=== PATIENT | female | born 1965 | race African-American/Black ===

== ENCOUNTER 2021-06-02 00:06 | Inpatient (IN) ==
[2021-06-02] MEDS ORDERED: SODIUM CHLORIDE 0.9% 1,000 ML IV STA (00:28)
[2021-06-02 01:03] LABS: Basophils % 0.3 % (0.0-0.8); Eosinophils # 0.2 10*3/uL (0.0-0.87); Eosinophils % 2.9 % (0.00-10.9); Hematocrit 32.5 VOL% (35.7-47.0); Hemoglobin 10.1 GM/DL (12.0-16.0); Immature Granulocytes % 0.4 %; Immature Granulocytes Absolute 0.03 #; Lymphocytes # 2.6 10*3/uL (1.4-4.0); Lymphocytes % 35.2 % (21.3-54.2); Mean Corpuscular HGB Conc 31.1 GM/DL (32-36); Monocytes # 0.5 10*3/uL (0.11-0.8); Monocytes % 7.4 % (1.7-12.7); Neutrophils % 53.8 % (38.7-73.9); Platelet Count 368 T/CUMM (130-400); Red Blood Count 3.65 MC/CUMM (3.8-5.5); Red Cell Distribution Width 15.8 % (9.3-17.3); White Blood Count 7.3 T/CUMM (4-12)
[2021-06-02] MEDS ORDERED: ONDANSETRON 4 MG/2 ML VIAL IV PRN ×2 (01:06→09:21)
[2021-06-02] MEDS ORDERED: MORPHINE 2 MG/1 ML SYRINGE IV STA ×2 (01:06→02:54)
[2021-06-02 01:17] LABS: PT Patient Result 11.2 SECS (10.5-12.0)
[2021-06-02 01:30] LABS: Albumin 2.8 G/DL (3.4-5.0); Bilirubin,Total 0.4 MG/DL (0.20-1.00); Osmolality,Calculated 275.5 MOS/KG (273-304); Potassium 3.2 MMOL/L (3.5-5.1); Total Protein 7.2 G/DL (6.4-8.2)
[2021-06-02] MEDS ORDERED: GLUCAGON 1 MG VIAL IM PRN (03:23)
[2021-06-02] MEDS ORDERED: MORPHINE 2 MG/1 ML SYRINGE IV PRN (03:23)
[2021-06-02] MEDS ORDERED: DEXTROSE 10% 250 ML BAG IV PRN (03:31)
[2021-06-02] MEDS ORDERED: HYDROmorphone 1 MG/1 ML SYRINGE IV ONE (04:04)
[2021-06-02] MEDS: SODIUM CHLORIDE 0.9% 1,000 ML IV SCH ×2 (04:15→20:56)
[2021-06-02] MEDS: POTASSIUM CHLORIDE RIDER 10 MEQ/100 ML PREMIX IV SCH ×2 (04:16→05:37)
[2021-06-02] MEDS ORDERED: FAMOTIDINE 20 MG TABLET PO ONE (06:11)
[2021-06-02] MEDS ORDERED: LACTATED RINGERS 1,000 ML IV SCH (06:30)
[2021-06-02] MEDS ORDERED: propofoL 200 MG/20 ML VIAL IV ONE (07:02)
[2021-06-02] MEDS ORDERED: LIDOCAINE 2% 5 ML VIAL ONE (07:02)
[2021-06-02] MEDS ORDERED: ROCURONIUM 50 MG/5 ML VIAL IV ONE (07:02)
[2021-06-02] MEDS ORDERED: fentaNYL 100 MCG/2 ML VIAL ONE (07:04)
[2021-06-02] MEDS ORDERED: DEXMEDETOMIDINE 200 MCG/2 ML VIAL ONE (07:05)
[2021-06-02] MEDS ORDERED: MIDAZOLAM 2 MG/2 ML VIAL ONE (07:05)
[2021-06-02] MEDS ORDERED: LIDOCAINE 1% 5 ML VIAL ONE (07:09)
[2021-06-02] MEDS ORDERED: DEXAMETHASONE 4 MG/1 ML VIAL ONE (07:09)
[2021-06-02] MEDS ORDERED: ROPIVACAINE 0.5% 30 ML VIAL ONE (07:09)
[2021-06-02 07:20] LABS: Basophils % 0.2 % (0.0-0.8); Eosinophils # 0.2 10*3/uL (0.0-0.87); Eosinophils % 4.2 % (0.00-10.9); Hematocrit 30.4 VOL% (35.7-47.0); Hemoglobin 9.5 GM/DL (12.0-16.0); Immature Granulocytes % 0.3 %; Immature Granulocytes Absolute 0.02 #; Lymphocytes # 2.4 10*3/uL (1.4-4.0); Lymphocytes % 42.4 % (21.3-54.2); Mean Corpuscular HGB Conc 31.3 GM/DL (32-36); Mean Corpuscular Volume 88.9 FL (87-102); Mean Platelet Volume 10.6 FL (9.6-12.0); Monocytes # 0.6 10*3/uL (0.11-0.8); Monocytes % 9.8 % (1.7-12.7); Neutrophils % 43.1 % (38.7-73.9); Platelet Count 328 T/CUMM (130-400); Red Blood Count 3.42 MC/CUMM (3.8-5.5); Red Cell Distribution Width 15.9 % (9.3-17.3); White Blood Count 5.7 T/CUMM (4-12)
[2021-06-02] MEDS ORDERED: CLINDAMYCIN INJ 900 MG/50 ML PREMIX IV ONE (07:29)
[2021-06-02 07:38] LABS: Albumin 2.7 G/DL (3.4-5.0); Bilirubin,Total 0.4 MG/DL (0.20-1.00); Calcium 8.9 MG/DL (8.5-10.1); Osmolality,Calculated 270.8 MOS/KG (273-304); Potassium 3.6 MMOL/L (3.5-5.1); Total Protein 6.7 G/DL (6.4-8.2)
[2021-06-02 08:08] LABS: Phosphorous 3.6 MG/DL (2.5-4.9)
[2021-06-02] MEDS: INSULIN REGULAR 100 UNIT/ML SUBCUT SCH ×4 (08:37→20:57)
[2021-06-02] MEDS ORDERED: GLYCOPYRROLATE 0.4 MG/2 ML VIAL ONE ×2 (08:38→08:49)
[2021-06-02] MEDS ORDERED: DESFLURANE 1 UNIT/15 MINUTE INH ONE (08:38)
[2021-06-02] MEDS ORDERED: NEOSTIGMINE 10 MG/10 ML VIAL ONE (08:44)
[2021-06-02] MEDS ORDERED: PHENYLEPHRINE 1 MG/10 ML SYRINGE IV ONE (08:49)
[2021-06-02] MEDS ORDERED: SUGAMMADEX 200 MG/2 ML VIAL IV ONE (09:02)
[2021-06-02] MEDS ORDERED: MAGNESIUM HYDROXIDE SUSP 30 ML UDCUP PO PRN (09:15)
[2021-06-02] MEDS ORDERED: PROMETHAZINE 25 MG/1 ML VIAL IM PRN (09:15)
[2021-06-02] MEDS ORDERED: HydrOXYzine PAMOATE 25 MG CAPSULE PO PRN (09:19)
[2021-06-02] MEDS ORDERED: PROMETHAZINE 25 MG TABLET PO PRN (09:19)
[2021-06-02] MEDS ORDERED: PROMETHAZINE INJ 25 MG in SODIUM CHLORIDE 0.9% 50 ML IV PRN (09:21)
[2021-06-02] MEDS ORDERED: MEPERIDINE 25 MG/1 ML VIAL IV PRN (09:21)
[2021-06-02] MEDS ORDERED: HYDROmorphone 1 MG/1 ML SYRINGE IV PRN (09:21)
[2021-06-02] MEDS ORDERED: diphenhydrAMINE 50 MG/1 ML VIAL IV PRN (09:21)
[2021-06-02] MEDS: oxyCODONE/ACETAMINOPHEN 5-325 MG TABLET PO PRN ×3 (11:03→22:02)
[2021-06-02 11:31] LABS: Hyaline Casts,Urine 3 /LPF (0-3); RBC,Urine 1 /HPF (0-4); Squamous Epithelial Cell,Urine Occasional /HPF (0-10)
[2021-06-02 11:32] LABS: Bilirubin,Urine Negative (Negative); Blood, Urine Negative (Negative); Glucose,Urine (UA) Negative (Negative); Ketones,Urine Negative (Negative); Nitrite,Urine Negative (Negative); Protein,Urine Negative (Negative); Urine Appearance Clear (Clear); Urine Color Yellow (Yellow); Urine Specific Gravity 1.015 (1.001-1.035); Urine pH 5.5 (4.5-8.0)
[2021-06-02] MEDS ORDERED: ALBUTEROL 2.5 MG/3 ML NEB RESP TX PRN (12:00)
[2021-06-02 13:08] LABS: Barbiturates Screen,Urine Negative (Negative); Benzodiazepines Screen,Urine Positive (Negative); Cannabinoid Screen,Urine Negative (Negative); Opiate Screen,Urine Positive (Negative); Phencyclidine Screen,Urine Negative (Negative)
[2021-06-02] MEDS: CLINDAMYCIN INJ 900 MG/50 ML PREMIX IV SCH ×2 (13:30→21:00)
[2021-06-02] MEDS: DICLOFENAC 1% GEL 100 GM TUBE TOP SCH ×3 (13:30→21:02)
[2021-06-02] MEDS ORDERED: CYCLOBENZAPRINE 5 MG PO SCH (15:00)
[2021-06-02] MEDS: tiZANidine 4 MG TABLET PO SCH (20:57)
[2021-06-02] MEDS: CETIRIZINE 10 MG TABLET PO SCH (20:58)
[2021-06-02] MEDS: DULoxetine 30 MG CAPSULE PO SCH (20:58)
[2021-06-02] MEDS ORDERED: ZALEPLON 5 MG CAPSULE PO SCH (21:00)
[2021-06-02] MEDS: diphenhydrAMINE CAP 25 MG CAPSULE PO PRN (21:40)
[2021-06-03] MEDS: oxyCODONE/ACETAMINOPHEN 5-325 MG TABLET PO PRN ×2 (04:34→20:23)
[2021-06-03] MEDS: CLINDAMYCIN INJ 900 MG/50 ML PREMIX IV SCH (05:21)
[2021-06-03] MEDS: INSULIN REGULAR 100 UNIT/ML SUBCUT SCH ×4 (08:40→22:06)
[2021-06-03] MEDS ORDERED: LOSARTAN 50 MG TABLET PO SCH (09:00)
[2021-06-03] MEDS ORDERED: PANTOPRAZOLE 40 MG TABLET PO SCH (09:00)
[2021-06-03] MEDS: HYDROmorphone 1 MG/1 ML SYRINGE IV PRN ×3 (09:04→23:29)
[2021-06-03] MEDS: DULoxetine 30 MG CAPSULE PO SCH (09:07)
[2021-06-03] MEDS: ROSUVASTATIN 20 MG TABLET PO SCH (09:07)
[2021-06-03] MEDS: PANTOPRAZOLE 40 MG TABLET PO SCH (09:07)
[2021-06-03] MEDS: tiZANidine 4 MG TABLET PO SCH ×2 (09:07→20:23)
[2021-06-03] MEDS: FOLIC ACID 1 MG TABLET PO SCH (09:08)
[2021-06-03] MEDS: DICLOFENAC 1% GEL 100 GM TUBE TOP SCH ×4 (09:09→20:24)
[2021-06-03] MEDS: MOMETASONE 220 MCG/PUFF INHALER 14 DOSE INH SCH (10:00)
[2021-06-03] MEDS: MIRABEGRON 25 MG PO SCH (10:00)
[2021-06-03] MEDS: FLUTICASONE 50 MCG NASAL SPRAY 16 GM BOTTLE BOTH NARES SCH (10:40)
[2021-06-03] MEDS: SODIUM CHLORIDE 0.9% 1,000 ML IV SCH ×2 (11:12→18:27)
[2021-06-03] MEDS: diphenhydrAMINE CAP 25 MG CAPSULE PO PRN (20:23)
[2021-06-03] MEDS: CETIRIZINE 10 MG TABLET PO SCH (20:24)
[2021-06-03] MEDS ORDERED: DULoxetine 20 MG CAPSULE PO SCH (21:00)
[2021-06-04] MEDS: oxyCODONE/ACETAMINOPHEN 5-325 MG TABLET PO PRN ×6 (01:17→23:47)
[2021-06-04] MEDS: HYDROmorphone 1 MG/1 ML SYRINGE IV PRN ×5 (03:25→21:14)
[2021-06-04 05:41] LABS: Basophils % 0.1 % (0.0-0.8); Eosinophils # 0.1 10*3/uL (0.0-0.87); Hematocrit 27.9 VOL% (35.7-47.0); Hemoglobin 8.7 GM/DL (12.0-16.0); Immature Granulocytes % 0.4 %; Immature Granulocytes Absolute 0.03 #; Lymphocytes # 2.9 10*3/uL (1.4-4.0); Lymphocytes % 43.3 % (21.3-54.2); Mean Corpuscular HGB Conc 31.2 GM/DL (32-36); Mean Corpuscular Volume 89.4 FL (87-102); Mean Platelet Volume 11.6 FL (9.6-12.0); Monocytes # 0.5 10*3/uL (0.11-0.8); Neutrophils % 47.2 % (38.7-73.9); Platelet Count 299 T/CUMM (130-400); Red Blood Count 3.12 MC/CUMM (3.8-5.5); Red Cell Distribution Width 15.8 % (9.3-17.3); White Blood Count 6.8 T/CUMM (4-12)
[2021-06-04 06:16] LABS: Calcium 8.5 MG/DL (8.5-10.1); Potassium 3.1 MMOL/L (3.5-5.1)
[2021-06-04] MEDS: INSULIN REGULAR 100 UNIT/ML SUBCUT SCH ×4 (07:58→21:30)
[2021-06-04] MEDS: MIRABEGRON 25 MG PO SCH (08:23)
[2021-06-04] MEDS: MOMETASONE 220 MCG/PUFF INHALER 14 DOSE INH SCH (08:24)
[2021-06-04] MEDS: FLUTICASONE 50 MCG NASAL SPRAY 16 GM BOTTLE BOTH NARES SCH (08:48)
[2021-06-04] MEDS: ROSUVASTATIN 20 MG TABLET PO SCH (08:49)
[2021-06-04] MEDS: tiZANidine 4 MG TABLET PO SCH ×2 (08:49→21:14)
[2021-06-04] MEDS: DICLOFENAC 1% GEL 100 GM TUBE TOP SCH ×4 (08:49→21:31)
[2021-06-04] MEDS: PANTOPRAZOLE 40 MG TABLET PO SCH (08:49)
[2021-06-04] MEDS: FOLIC ACID 1 MG TABLET PO SCH (08:49)
[2021-06-04] MEDS: DULoxetine 30 MG CAPSULE PO SCH ×2 (08:49→21:14)
[2021-06-04] MEDS: SODIUM CHLORIDE 0.9% 1,000 ML IV SCH ×2 (08:50→23:17)
[2021-06-04] MEDS: diphenhydrAMINE CAP 25 MG CAPSULE PO PRN (21:14)
[2021-06-04] MEDS: CETIRIZINE 10 MG TABLET PO SCH (21:14)
[2021-06-05] MEDS: HYDROmorphone 1 MG/1 ML SYRINGE IV PRN ×7 (01:35→22:20)
[2021-06-05] MEDS: oxyCODONE/ACETAMINOPHEN 5-325 MG TABLET PO PRN ×5 (04:16→20:39)
[2021-06-05 06:08] LABS: Basophils % 0.4 % (0.0-0.8); Eosinophils # 0.2 10*3/uL (0.0-0.87); Eosinophils % 3.7 % (0.00-10.9); Hematocrit 29.4 VOL% (35.7-47.0); Hemoglobin 9.2 GM/DL (12.0-16.0); Immature Granulocytes % 0.4 %; Immature Granulocytes Absolute 0.02 #; Lymphocytes # 2.5 10*3/uL (1.4-4.0); Lymphocytes % 45.9 % (21.3-54.2); Mean Corpuscular HGB Conc 31.3 GM/DL (32-36); Mean Corpuscular Volume 89.6 FL (87-102); Mean Platelet Volume 11.5 FL (9.6-12.0); Monocytes # 0.6 10*3/uL (0.11-0.8); Monocytes % 11.7 % (1.7-12.7); Neutrophils % 37.9 % (38.7-73.9); Platelet Count 301 T/CUMM (130-400); Red Blood Count 3.28 MC/CUMM (3.8-5.5); Red Cell Distribution Width 15.9 % (9.3-17.3); White Blood Count 5.4 T/CUMM (4-12)
[2021-06-05 06:32] LABS: Atypical Lymphocytes Few; Eosinophils 4 % (0-10); Hypochromia 1+; Lymphocytes 50 % (20-55); Microcytosis 1+; Total Cells Counted 100
[2021-06-05 06:33] LABS: Polychromasia Slight; Target Cells Slight
[2021-06-05 06:35] LABS: Calcium 8.6 MG/DL (8.5-10.1); Osmolality,Calculated 285.7 MOS/KG (273-304); Potassium 3.2 MMOL/L (3.5-5.1)
[2021-06-05] MEDS: tiZANidine 4 MG TABLET PO SCH ×2 (06:47→17:26)
[2021-06-05] MEDS: ASPIRIN EC 325 MG TABLET PO SCH (09:41)
[2021-06-05] MEDS: PANTOPRAZOLE 40 MG TABLET PO SCH (09:41)
[2021-06-05] MEDS: ROSUVASTATIN 20 MG TABLET PO SCH (09:42)
[2021-06-05] MEDS: FLUTICASONE 50 MCG NASAL SPRAY 16 GM BOTTLE BOTH NARES SCH (09:42)
[2021-06-05] MEDS: DICLOFENAC 1% GEL 100 GM TUBE TOP SCH ×4 (09:42→21:54)
[2021-06-05] MEDS: FOLIC ACID 1 MG TABLET PO SCH (09:42)
[2021-06-05] MEDS: INSULIN REGULAR 100 UNIT/ML SUBCUT SCH ×4 (09:44→21:54)
[2021-06-05] MEDS: MIRABEGRON 25 MG PO SCH (10:14)
[2021-06-05] MEDS: MOMETASONE 220 MCG/PUFF INHALER 14 DOSE INH SCH (10:14)
[2021-06-05] MEDS: DULoxetine 30 MG CAPSULE PO SCH ×2 (10:28→20:39)
[2021-06-05] MEDS: SODIUM CHLORIDE 0.9% 1,000 ML IV SCH (11:23)
[2021-06-05] MEDS ORDERED: HYDROmorphone 1 MG/1 ML SYRINGE SUBCUT PRN (11:46)
[2021-06-05 14:43] LABS: % Iron Saturation 26.2 % (18-50)
[2021-06-05 14:51] LABS: Folate > 24.00 NG/ML (5.38-24.0); Vitamin B12 272 PG/ML (211-911)
[2021-06-05] MEDS ORDERED: MAGNESIUM SULF RIDER 4 GM/100 ML PREMIX IV PRN (16:02)
[2021-06-05] MEDS ORDERED: MAGNESIUM SULF RIDER 2 GM/50 ML PREMIX IV PRN (16:02)
[2021-06-05] MEDS: CETIRIZINE 10 MG TABLET PO SCH (20:38)
[2021-06-05] MEDS: DOCUSATE SODIUM 100 MG CAPSULE PO SCH (20:39)
[2021-06-05] MEDS: cycloSPORINE OPH EMUL 1 VIAL BOTH EYES SCH (20:39)
[2021-06-05] MEDS: diphenhydrAMINE CAP 25 MG CAPSULE PO PRN (20:50)
[2021-06-06] MEDS: oxyCODONE/ACETAMINOPHEN 5-325 MG TABLET PO PRN ×5 (00:37→21:00)
[2021-06-06] MEDS: HYDROmorphone 1 MG/1 ML SYRINGE IV PRN ×6 (02:20→22:57)
[2021-06-06] MEDS: tiZANidine 4 MG TABLET PO SCH ×2 (05:58→18:26)
[2021-06-06] MEDS: INSULIN REGULAR 100 UNIT/ML SUBCUT SCH ×4 (08:07→20:57)
[2021-06-06] MEDS: cycloSPORINE OPH EMUL 1 VIAL BOTH EYES SCH ×2 (08:38→20:59)
[2021-06-06] MEDS: PANTOPRAZOLE 40 MG TABLET PO SCH (08:38)
[2021-06-06] MEDS: FOLIC ACID 1 MG TABLET PO SCH (08:38)
[2021-06-06] MEDS: DULoxetine 30 MG CAPSULE PO SCH ×2 (08:38→20:59)
[2021-06-06] MEDS: DOCUSATE SODIUM 100 MG CAPSULE PO SCH ×2 (08:38→20:59)
[2021-06-06] MEDS: ASPIRIN EC 325 MG TABLET PO SCH (08:39)
[2021-06-06] MEDS: ROSUVASTATIN 20 MG TABLET PO SCH (08:39)
[2021-06-06] MEDS: FLUTICASONE 50 MCG NASAL SPRAY 16 GM BOTTLE BOTH NARES SCH (08:39)
[2021-06-06] MEDS: DICLOFENAC 1% GEL 100 GM TUBE TOP SCH ×4 (08:40→21:01)
[2021-06-06] MEDS: MIRABEGRON 25 MG PO SCH (08:42)
[2021-06-06] MEDS: MOMETASONE 220 MCG/PUFF INHALER 14 DOSE INH SCH (08:42)
[2021-06-06 11:15] LABS: Basophils % 0.4 % (0.0-0.8); Eosinophils # 0.3 10*3/uL (0.0-0.87); Eosinophils % 5.8 % (0.00-10.9); Hemoglobin 9.4 GM/DL (12.0-16.0); Immature Granulocytes % 0.4 %; Immature Granulocytes Absolute 0.02 #; Lymphocytes # 1.9 10*3/uL (1.4-4.0); Lymphocytes % 35.7 % (21.3-54.2); Mean Corpuscular HGB Conc 31.3 GM/DL (32-36); Mean Corpuscular Volume 89.3 FL (87-102); Mean Platelet Volume 10.7 FL (9.6-12.0); Monocytes # 0.4 10*3/uL (0.11-0.8); Monocytes % 7.3 % (1.7-12.7); Neutrophils % 50.4 % (38.7-73.9); Platelet Count 326 T/CUMM (130-400); Red Blood Count 3.36 MC/CUMM (3.8-5.5); Red Cell Distribution Width 16.1 % (9.3-17.3); White Blood Count 5.2 T/CUMM (4-12)
[2021-06-06 11:35] LABS: Alanine Aminotransferase 14 U/L (13-56); Albumin 2.3 G/DL (3.4-5.0); Alkaline Phosphatase 131 U/L (45-117); Aspartate Amino Transferase 15 U/L (0-37); Bilirubin,Total < 0.39 MG/DL (0.20-1.00); Blood Urea Nitrogen 6 MG/DL (7-18); Calcium 8.7 MG/DL (8.5-10.1); Carbon Dioxide 30 MMOL/L (21-32); Chloride 109 MMOL/L (98-107); Estimated Glom Filtration Rate 144 ML/MIN; Glucose 105 MG/DL (74-106); Potassium 3.4 MMOL/L (3.5-5.1); Sodium 143 MMOL/L (136-145); Total Protein 6.2 G/DL (6.4-8.2)
[2021-06-06] MEDS ORDERED: POTASSIUM CHLORIDE 20 MEQ TABLET PO ONE (15:36)
[2021-06-06] MEDS: CETIRIZINE 10 MG TABLET PO SCH (20:59)
[2021-06-06] MEDS: diphenhydrAMINE CAP 25 MG CAPSULE PO PRN (20:59)
[2021-06-07] MEDS: oxyCODONE/ACETAMINOPHEN 5-325 MG TABLET PO PRN ×4 (02:04→18:13)
[2021-06-07] MEDS: tiZANidine 4 MG TABLET PO SCH ×2 (05:07→18:15)
[2021-06-07 06:05] LABS: Basophils % 0.5 % (0.0-0.8); Eosinophils # 0.4 10*3/uL (0.0-0.87); Eosinophils % 6.7 % (0.00-10.9); Hematocrit 29.7 VOL% (35.7-47.0); Hemoglobin 9.4 GM/DL (12.0-16.0); Immature Granulocytes % 0.3 %; Immature Granulocytes Absolute 0.02 #; Lymphocytes # 2.3 10*3/uL (1.4-4.0); Lymphocytes % 39.7 % (21.3-54.2); Mean Corpuscular HGB Conc 31.6 GM/DL (32-36); Mean Corpuscular Volume 88.4 FL (87-102); Mean Platelet Volume 11.3 FL (9.6-12.0); Monocytes # 0.5 10*3/uL (0.11-0.8); Monocytes % 8.9 % (1.7-12.7); Neutrophils % 43.9 % (38.7-73.9); Platelet Count 343 T/CUMM (130-400); Red Blood Count 3.36 MC/CUMM (3.8-5.5); Red Cell Distribution Width 15.7 % (9.3-17.3); White Blood Count 5.9 T/CUMM (4-12)
[2021-06-07] MEDS: HYDROmorphone 1 MG/1 ML SYRINGE IV PRN ×4 (06:07→21:03)
[2021-06-07 06:37] LABS: Alanine Aminotransferase 15 U/L (13-56); Albumin 2.3 G/DL (3.4-5.0); Alkaline Phosphatase 131 U/L (45-117); Aspartate Amino Transferase 16 U/L (0-37); Bilirubin,Total < 0.39 MG/DL (0.20-1.00); Blood Urea Nitrogen 7 MG/DL (7-18); Calcium 9.3 MG/DL (8.5-10.1); Carbon Dioxide 27 MMOL/L (21-32); Chloride 108 MMOL/L (98-107); Estimated Glom Filtration Rate 144 ML/MIN; Glucose 94 MG/DL (74-106); Osmolality,Calculated 280.1 MOS/KG (273-304); Potassium 3.5 MMOL/L (3.5-5.1); Sodium 142 MMOL/L (136-145); Total Protein 6.2 G/DL (6.4-8.2)
[2021-06-07] MEDS: ASPIRIN EC 325 MG TABLET PO SCH (10:26)
[2021-06-07] MEDS: DOCUSATE SODIUM 100 MG CAPSULE PO SCH ×2 (10:27→21:02)
[2021-06-07] MEDS: ROSUVASTATIN 20 MG TABLET PO SCH (10:27)
[2021-06-07] MEDS: DULoxetine 30 MG CAPSULE PO SCH ×2 (10:28→21:02)
[2021-06-07] MEDS: FLUTICASONE 50 MCG NASAL SPRAY 16 GM BOTTLE BOTH NARES SCH (10:28)
[2021-06-07] MEDS: PANTOPRAZOLE 40 MG TABLET PO SCH (10:29)
[2021-06-07] MEDS: FOLIC ACID 1 MG TABLET PO SCH (10:29)
[2021-06-07] MEDS: DICLOFENAC 1% GEL 100 GM TUBE TOP SCH ×4 (10:31→21:05)
[2021-06-07] MEDS: INSULIN REGULAR 100 UNIT/ML SUBCUT SCH ×4 (10:42→21:01)
[2021-06-07] MEDS: cycloSPORINE OPH EMUL 1 VIAL BOTH EYES SCH ×2 (12:34→21:02)
[2021-06-07] MEDS: MIRABEGRON 25 MG PO SCH (12:54)
[2021-06-07] MEDS: POLYETHYLENE GLYCOL POWDER 17 GM PACK PO SCH ×2 (14:55→21:02)
[2021-06-07] MEDS: MOMETASONE 220 MCG/PUFF INHALER 14 DOSE INH SCH (18:00)
[2021-06-07] MEDS: CETIRIZINE 10 MG TABLET PO SCH (21:02)
[2021-06-07] MEDS: diphenhydrAMINE CAP 25 MG CAPSULE PO PRN (21:02)
[2021-06-08] MEDS: HYDROmorphone 1 MG/1 ML SYRINGE IV PRN ×2 (03:25→07:54)
[2021-06-08] MEDS: tiZANidine 4 MG TABLET PO SCH (05:42)
[2021-06-08] MEDS: oxyCODONE/ACETAMINOPHEN 5-325 MG TABLET PO PRN ×2 (05:43→12:13)
[2021-06-08 06:16] LABS: Basophils % 0.2 % (0.0-0.8); Eosinophils # 0.3 10*3/uL (0.0-0.87); Eosinophils % 6.1 % (0.00-10.9); Hematocrit 29.6 VOL% (35.7-47.0); Hemoglobin 9.4 GM/DL (12.0-16.0); Immature Granulocytes % 0.5 %; Immature Granulocytes Absolute 0.03 #; Lymphocytes # 2.1 10*3/uL (1.4-4.0); Lymphocytes % 38.4 % (21.3-54.2); Mean Corpuscular HGB Conc 31.8 GM/DL (32-36); Mean Corpuscular Volume 88.4 FL (87-102); Mean Platelet Volume 10.9 FL (9.6-12.0); Monocytes # 0.6 10*3/uL (0.11-0.8); Monocytes % 10.4 % (1.7-12.7); Neutrophils % 44.4 % (38.7-73.9); Platelet Count 315 T/CUMM (130-400); Red Blood Count 3.35 MC/CUMM (3.8-5.5); Red Cell Distribution Width 15.7 % (9.3-17.3); White Blood Count 5.6 T/CUMM (4-12)
[2021-06-08 06:39] LABS: Calcium 8.7 MG/DL (8.5-10.1); Osmolality,Calculated 283.8 MOS/KG (273-304); Potassium 3.8 MMOL/L (3.5-5.1)
[2021-06-08] MEDS ORDERED: DULAGLUTIDE 4.5 MG/0.5 ML SUBCUT SCH (09:19)
[2021-06-08] MEDS: ROSUVASTATIN 20 MG TABLET PO SCH (09:21)
[2021-06-08] MEDS: ASPIRIN EC 325 MG TABLET PO SCH (09:21)
[2021-06-08] MEDS: DULoxetine 30 MG CAPSULE PO SCH (09:21)
[2021-06-08] MEDS: FOLIC ACID 1 MG TABLET PO SCH (09:21)
[2021-06-08] MEDS: PANTOPRAZOLE 40 MG TABLET PO SCH (09:21)
[2021-06-08] MEDS: DOCUSATE SODIUM 100 MG CAPSULE PO SCH (09:21)
[2021-06-08] MEDS: DICLOFENAC 1% GEL 100 GM TUBE TOP SCH ×2 (09:24→14:18)
[2021-06-08] MEDS: FLUTICASONE 50 MCG NASAL SPRAY 16 GM BOTTLE BOTH NARES SCH (09:24)
[2021-06-08] MEDS: cycloSPORINE OPH EMUL 1 VIAL BOTH EYES SCH (10:12)
[2021-06-08] MEDS: KETOROLAC 15 MG/1 ML VIAL IV SCH ×2 (10:14→15:34)
[2021-06-08] MEDS: MIRABEGRON 25 MG PO SCH (10:45)
[2021-06-08] MEDS: INSULIN REGULAR 100 UNIT/ML SUBCUT SCH ×2 (10:48→11:36)
[2021-06-08] MEDS: POLYETHYLENE GLYCOL POWDER 17 GM PACK PO SCH (10:50)
[2021-06-08] MEDS: MOMETASONE 220 MCG/PUFF INHALER 14 DOSE INH SCH (15:15)
[2021-06-08 15:47] VITALS: BP 158/86
== END 2021-06-08 16:15 | DRG 493 ==
LOC: EDBD → EDSEX → EDUNIT# → N.EDINP 00:06 → N.ED 00:06 → SUATTDRO 03:23 → N.3E 03:43 → SUATTDRO 07:44
PROVIDERS: ADMIT Internal Medicine; ATTEND Internal Medicine